=== PATIENT | female | born 2000 | race Caucasian/White ===

== ENCOUNTER 2022-01-09 11:39 | Emergency (ER) | payer BC, SELFPAY ==
[2022-01-09] VITALS (7 sets, daily range): BP systolic 91–116; BP diastolic 49–79; PULSE 66–90; RESP 14–18; TEMP 36.5–37.6; O2SAT 98–100; BMI 24.3
--- NOTE | ~2022-01-09 | US_ITS ---
EXAMINATION: US PELVIS CLINICAL INFORMATION: Pelvic pain COMPARISON: None TECHNIQUE: Ultrasound of the pelvis is performed using both transabdominal and transvaginal transducers along with Doppler. Transvaginal imaging is performed due to inadequate visualization transabdominally. FINDINGS: Uterus: The uterus is anteverted and measures 7.7 x 3.8 x 5.6 cm. The double wall endometrial thickness is 1.2 mm. Although not discretely interrogated, there is suspected endometrial cystic changes which can be seen in the setting of adenomyosis. The uterus is smooth in contour and has normal myometrial echogenicity. No visible fibroid. Adnexa: Both ovaries are visualized. There is normal color flow to the adnexa. There is no ovarian torsion. There is no pelvic ascites or fluid collection. Right ovary measures 3.7 x 2.5 x 2.1 cm. Left ovary measures 2.0 x 2.8 x 1.8 cm. US/US pelvic and transvaginal IMPRESSION: Unremarkable sonographic appearance of the ovaries without evidence of ovarian torsion. Although not discretely interrogated, there is suspected endometrial cystic changes which can be seen in the setting of adenomyosis.
--- NOTE | ~2022-01-09 | US_ITS ---
EXAMINATION: US PELVIS CLINICAL INFORMATION: Pelvic pain COMPARISON: None TECHNIQUE: Ultrasound of the pelvis is performed using both transabdominal and transvaginal transducers along with Doppler. Transvaginal imaging is performed due to inadequate visualization transabdominally. FINDINGS: Uterus: The uterus is anteverted and measures 7.7 x 3.8 x 5.6 cm. The double wall endometrial thickness is 1.2 mm. Although not discretely interrogated, there is suspected endometrial cystic changes which can be seen in the setting of adenomyosis. The uterus is smooth in contour and has normal myometrial echogenicity. No visible fibroid. Adnexa: Both ovaries are visualized. There is normal color flow to the adnexa. There is no ovarian torsion. There is no pelvic ascites or fluid collection. Right ovary measures 3.7 x 2.5 x 2.1 cm. Left ovary measures 2.0 x 2.8 x 1.8 cm. US/US pelvic ovarian doppler IMPRESSION: Unremarkable sonographic appearance of the ovaries without evidence of ovarian torsion. Although not discretely interrogated, there is suspected endometrial cystic changes which can be seen in the setting of adenomyosis.
--- NOTE | ~2022-01-09 | US_ITS ---
EXAMINATION: US VENOUS ULTRASOUND WITH DOPPLER LOWER EXTREMITY, BILATERAL CLINICAL INFORMATION: Elevated d-dimer COMPARISON: None TECHNIQUE: Ultrasound of the deep veins is performed from the hip to the calf with compression sonography and color and pulse Doppler assessment. Spectral analysis with color-flow imaging is performed. FINDINGS: RIGHT: There is normal venous compression and respiratory variation and augmented flow. The visualized common femoral vein, superficial femoral vein, profunda femoral vein, popliteal vein, and the trifurcation region shows no evidence of deep venous thrombosis. There is no significant popliteal fossa cyst. LEFT: There is normal venous compression and respiratory variation and augmented flow. The visualized common femoral vein, superficial femoral vein, profunda femoral vein, popliteal vein, and the trifurcation region shows no evidence of deep venous thrombosis. There is no significant popliteal fossa cyst. If the patient's symptoms persist, followup ultrasound in 5 days 7 days might be of value to exclude proximal propagation from a non-visualized calf vein. US/US venous duplex LE BI IMPRESSION: No DVT demonstrated in the bilateral lower extremity.
--- NOTE | 2022-01-09 12:21 | ECG_ITS ---
Test Reason : LOSS OF CONCIOUSNESS Blood Pressure : / mmHG Vent. Rate : 064 BPM Atrial Rate : 064 BPM P-R Int : 132 ms QRS Dur : 084 ms QT Int : 456 ms P-R-T Axes : 020 077 018 degrees QTc Int : 470 ms Normal sinus rhythm Nonspecific T wave abnormality Prolonged QT Abnormal ECG No previous ECGs available Referred By: Perry Leahy Electronically Signed By:Rishabh Whalen
--- NOTE | 2022-01-09 12:22 | ED_ITS ---
HPI - General Adult General Chief complaint: Syncope Stated complaint: syncope Time Seen by Provider: 01/09/22 12:08 Source: patient Mode of arrival: ambulatory History of Present Illness HPI narrative: 21-year-old female presents to the ED for syncopal episode after a bowel movement. Mother and patient states history syncopal episodes in the past and her primary care provider is aware. Patient states she has had syncopal episode s after bowel movements in the past. Patient states having normal colonoscopy and endoscopy. Patient denies having any headache, chest pain, shortness of breath, or abdominal pain before syncopal episodes. Patient states after bowel movement she felt cold and sweaty so she slid herself off the toilet and onto the floor and then syncopized. Patient states when she woke up she had mild menstrual abdominal cramping. patient is on her menstruation. Patient denies heavy bleeding. Patient is not on any control pills. Patient denies being . Related Data Allergies Allergy/AdvReac Type Severity Reaction Status Date / Time No Known Allergies Allergy Verified 01/09/22 12:19 Review of Systems Review of Systems: Syncopal episodes after bowel movement. Patient presently on menstruation. Yes all other systems are reviewed and are negative Constitutional: Constitutional: Reports as per HPI and Reports no additional constitutional complaints PMFSH Social History Social History Alcohol intake: never Patient Tobacco Use Status: Never used Tobacco Use of substances other than those prescribed or required for medical reasons: No Advance Directives: No Advance Directives Information Provided: No Physical Exam ED Vital Signs: Vital Signs - 24 hr 01/09/22 12:10 01/09/22 13:36 01/09/22 13:37 Temperature 97.7 F Pulse Rate 68 70 79 Respiratory Rate 18 14 Blood Pressure 97/54 L 93/54 L 96/53 L Pulse Oximetry 100 99 01/09/22 13:57 01/09/22 15:44 01/09/22 20:09 Temperature 98 F 99.7 F 98.8 F Pulse Rate 76 73 90 Respiratory Rate 16 16 17 Blood Pressure 101/50 L 91/49 L 116/79 Pulse Oximetry 100 98 BMI result Body Mass Index 24.3 Const General: cooperative, healthy appearing, comfortable, no acute distress, well developed, alert, awake and Physically active Orientation/consciousness: patient oriented x3 HENMT Head: Yes normal to inspection, Yes No palpable skull fracture present, Yes nor mocephalic, Yes atraumatic and No abrasion Eyes General: appearance normal, both eyes and all related structures Neck Neck: Yes normal visual inspection, Yes full ROM, Yes no lymphadenopathy, Yes no meningeal signs, Yes trachea midline, Yes supple, No anterior neck swelling and No tender Chest Chest palpation & inspection: normal inspection of the chest and normal palpation of entire chest wall Resp Effort & Inspection: normal respiratory effort and able to speak in complete sentences Auscultation: clear to auscultation bilaterally Cardio Jugular venous distension: no JVD Heart sounds: S1 normal heart sound present and S2 normal heart sound present GI Inspection: Yes normal to inspection and No abdominal wall ecchymosis Palpation (GI): Soft to palpation, not firm, nontender, no guarding and not rigid General: No CVA tenderness and Yes no CVA tenderness Back/Spine/Pelvis Back: no CVA tenderness, No CVA tenderness and No back tenderness Skin General skin exam: no rashes or lesions noted and elasticity normal Neuro General: patient oriented x3, gait normal, no meningeal signs and CN's II-XI intact bilaterally Cranial nerves: Yes CN's II-XII intact bilaterally Extrem Other: lower extremities negative for swelling, pitting edema, or calf tenderness. Psych Appearance: grossly normal, well kempt and not disheveled Course Course Course Narrative: Fluids ordered. EKG ordered. Labs ordered. Orthostatics ordered. Reevaluation(s) Reevaluation #1: patient has slightly elevated D-dimer ( 237). Upper normal limit is 243. no risk factors for PE. Will send for lower extremity ultrasound to make sure there is no DVT( although leg exam is normal). Patient having menstrual cramps and syncopal episode. Negative . abdomen benign. negative any rebound tenderness, You, McBurney, suicide, or Rovsing sign. Has some suprapubic tenderness will do ultrasound make sure there is no torsion although very unlikely. Dr. Benavides evaluated and spoke with patient. she agrees with plan. No need for chest CTA. Labs are normal. Orthostatics negative. Time: 05:49 Reevaluation #2: transvaginal ultrasound normal. Negative for ovarian cyst/torsion. it does shows adenomyosis. Bilateral lower extremity ultrasound negative for DVT. Patient's blood pressure normally runs low. [facility] which shows that patient usually runs a systolic 90s and diastolic less than 60 which is baseline. patient denies any dizziness. patient states multiple history of syncopal episodes for couple years. patient and mother informed to follow-up with primary care provider. Time: 18:24 Reevaluation #3: Second troponin negative. Patient and mother given copy of labs,ekg, and images told to follow-up with primary care provider and OBGYN. Medical Decision Making MDM Narrative Medical decision making narrative: syncope. Adenomyosis Lab Data Result diagrams: 01/09/22 12:51 01/09/22 12:51 Labs: Lab Results 01/09/22 01/09/22 01/09/22 Range/Units 12:34 12:51 12:51 WBC 12.3 H (4.8-10.8) X10*3/uL RBC 4.06 L (4.20-5.50) X10*6/uL Hgb 13.2 (12.0-16.0) g/dl Hct 40.2 (37.0-47.0) % MCV 99.0 H (80.0-98.0) fL MCH 32.5 (27.0-33.0) pg MCHC 32.8 (31.0-35.0) g/dl RDW 12.0 (11.0-16.0) % Plt Count 209 (160-400) X10*3/uL MPV 9.5 (9.4-12.3) fL Immature Gran % (Auto) 0.4 (0.0-0.4) % Neut % (Auto) 89.7 H (45-73) % Lymph % (Auto) 5.6 L (20-40) % [place] % (Auto) 3.9 (2-11) % Eos % (Auto) 0.2 (0-4) % Baso % (Auto) 0.2 (0-2) % Lymph # (Auto) 0.7 L (1.2-4.9) X10*3/uL [place] # (Auto) 0.5 (0.1-1.2) X10*3/uL Eos # (Auto) 0.0 (0.0-0.4) X10*3/uL Baso # (Auto) 0.0 (0.0-0.2) X10*3/uL Abs Immat Gran (auto) 0.05 H (0.00-0.03) X10*3/uL Absolute Neuts (auto) 11.0 H (2.0-8.3) x10*3/uL Absolute Nucleated RBC 0.000 (0.0-0.012) X10*3/uL Nucleated RBC % (auto) 0.0 (0.0-0.2) /100WBC PT 15.1 H (9.9-13.0) SEC INR 1.3 H (0.9-1.1) APTT 29.7 (24.1-38.0) SEC D-Dimer High Sensitivty 237 NG/ML Sodium (135-145) mmol/L Potassium (3.3-5.1) mmol/L Chloride (96-108) mmol/L Carbon Dioxide (22-29) mmol/L Anion Gap (12-20) BUN (9-16) mg/dL Creatinine (0.5-1.4) mg/dL Estim Creat Clear Calc Estimated GFR Random Glucose (60-115) mg/dL Calcium (8.4-10.2) mg/dL Magnesium (1.6-2.6) mg/dL Total Bilirubin (0.0-1.0) mg/dL AST (5-31) U/L ALT (0-31) U/L Alkaline Phosphatase (39-117) U/L Troponin I High Sens (<3.5-17.0) ng/L Total Protein (6.5-8.0) g/dL Albumin (3.5-5.0) g/dL Beta HCG, Quant mIU/mL Urine Color Urine Appearance Urine pH (5.0-8.0) Ur Specific [place] (1.005-1.025) Urine Protein (NEG-TRACE) MG/DL Urine Glucose (UA) (NEG) MG/DL Urine Ketones (NEG) MG/DL Urine Blood (NEG) Urine Nitrite (NEG) Ur Leukocyte Esterase (NEG) Urine RBC (0) /HPF Urine WBC (0-4) /HPF Ur Squamous Epith Cells /LPF Urine Bacteria /LPF Urine Mucus /LPF Urine Test (NEGATIVE) COVID-19 ([facility]) Negative (Negative) COVID-19 Clin Com See Note 05/01/22 05/01/22 05/01/22 Range/Units 12:51 12:51 14:04 WBC (4.8-10.8) X10*3/uL RBC (4.20-5.50) X10*6/uL Hgb (12.0-16.0) g/dl Hct (37.0-47.0) % MCV (80.0-98.0) fL MCH (27.0-33.0) pg MCHC (31.0-35.0) g/dl RDW (11.0-16.0) % Plt Count (160-400) X10*3/uL MPV (9.4-12.3) fL Immature Gran % (Auto) (0.0-0.4) % Neut % (Auto) (45-73) % Lymph % (Auto) (20-40) % [place] % (Auto) (2-11) % Eos % (Auto) (0-4) % Baso % (Auto) (0-2) % Lymph # (Auto) (1.2-4.9) X10*3/uL [place] # (Auto) (0.1-1.2) X10*3/uL Eos # (Auto) (0.0-0.4) X10*3/uL Baso # (Auto) (0.0-0.2) X10*3/uL Abs Immat Gran (auto) (0.00-0.03) X10*3/uL Absolute Neuts (auto) (2.0-8.3) x10*3/uL Absolute Nucleated RBC (0.0-0.012) X10*3/uL Nucleated RBC % (auto) (0.0-0.2) /100WBC PT (9.9-13.0) SEC INR (0.9-1.1) APTT (24.1-38.0) SEC D-Dimer High Sensitivty NG/ML Sodium 139 (135-145) mmol/L Potassium 4.3 (3.3-5.1) mmol/L Chloride 106 (96-108) mmol/L Carbon Dioxide 25 (22-29) mmol/L Anion Gap 12 (12-20) BUN 10 (9-16) mg/dL Creatinine 0.75 (0.5-1.4) mg/dL Estim Creat Clear Calc 120.7 Estimated GFR > 60 Random Glucose 93 (60-115) mg/dL Calcium 9.1 (8.4-10.2) mg/dL Magnesium 1.9 (1.6-2.6) mg/dL Total Bilirubin 1.0 (0.0-1.0) mg/dL AST 16 (5-31) U/L ALT 13 (0-31) U/L Alkaline Phosphatase 71 (39-117) U/L Troponin I High Sens < 3.5 (<3.5-17.0) ng/L Total Protein 7.4 (6.5-8.0) g/dL Albumin 4.2 (3.5-5.0) g/dL Beta HCG, Quant < 2 mIU/mL Urine Color YELLOW Urine Appearance CLEAR Urine pH 6.0 (5.0-8.0) Ur Specific [place] 1.010 (1.005-1.025) Urine Protein NEG (NEG-TRACE) MG/DL Urine Glucose (UA) NEG (NEG) MG/DL Urine Ketones NEG (NEG) MG/DL Urine Blood 3+ H (NEG) Urine Nitrite NEG (NEG) Ur Leukocyte Esterase NEG (NEG) Urine RBC 50-75 H (0) /HPF Urine WBC 1-4 (0-4) /HPF Ur Squamous Epith Cells TRACE /LPF Urine Bacteria TRACE /LPF Urine Mucus 1+ /LPF Urine Test (NEGATIVE) COVID-19 ([facility]) (Negative) COVID-19 Clin Com 01/09/22 01/09/22 Range/Units 14:04 19:05 WBC (4.8-10.8) X10*3/uL RBC (4.20-5.50) X10*6/uL Hgb (12.0-16.0) g/dl Hct (37.0-47.0) % MCV (80.0-98.0) fL MCH (27.0-33.0) pg MCHC (31.0-35.0) g/dl RDW (11.0-16.0) % Plt Count (160-400) X10*3/uL MPV (9.4-12.3) fL Immature Gran % (Auto) (0.0-0.4) % Neut % (Auto) (45-73) % Lymph % (Auto) (20-40) % [place] % (Auto) (2-11) % Eos % (Auto) (0-4) % Baso % (Auto) (0-2) % Lymph # (Auto) (1.2-4.9) X10*3/uL [place] # (Auto) (0.1-1.2) X10*3/uL Eos # (Auto) (0.0-0.4) X10*3/uL Baso # (Auto) (0.0-0.2) X10*3/uL Abs Immat Gran (auto) (0.00-0.03) X10*3/uL Absolute Neuts (auto) (2.0-8.3) x10*3/uL Absolute Nucleated RBC (0.0-0.012) X10*3/uL Nucleated RBC % (auto) (0.0-0.2) /100WBC PT (9.9-13.0) SEC INR (0.9-1.1) APTT (24.1-38.0) SEC D-Dimer High Sensitivty NG/ML Sodium (135-145) mmol/L Potassium (3.3-5.1) mmol/L Chloride (96-108) mmol/L Carbon Dioxide (22-29) mmol/L Anion Gap (12-20) BUN (9-16) mg/dL Creatinine (0.5-1.4) mg/dL Estim Creat Clear Calc Estimated GFR Random Glucose (60-115) mg/dL Calcium (8.4-10.2) mg/dL Magnesium (1.6-2.6) mg/dL Total Bilirubin (0.0-1.0) mg/dL AST (5-31) U/L ALT (0-31) U/L Alkaline Phosphatase (39-117) U/L Troponin I High Sens < 3.5 (<3.5-17.0) ng/L Total Protein (6.5-8.0) g/dL Albumin (3.5-5.0) g/dL Beta HCG, Quant mIU/mL Urine Color Urine Appearance Urine pH (5.0-8.0) Ur Specific [place] (1.005-1.025) Urine Protein (NEG-TRACE) MG/DL Urine Glucose (UA) (NEG) MG/DL Urine Ketones (NEG) MG/DL Urine Blood (NEG) Urine Nitrite (NEG) Ur Leukocyte Esterase (NEG) Urine RBC (0) /HPF Urine WBC (0-4) /HPF Ur Squamous Epith Cells /LPF Urine Bacteria /LPF Urine Mucus /LPF Urine Test NEGATIVE (NEGATIVE) COVID-19 ([facility]) (Negative) COVID-19 Clin Com ECG Data Interpretation: normal sinus rhythm. Reticular 64. Pr interval 132. QRS 84. pr QTC 470. Negative STEMI Discharge Plan Discharge Clinical Impression: Syncope, Adenomyosis of uterus Patient Disposition: Home, Self-Care Instructions: Syncope (DC), Pelvic Pain (ED) Additional Instructions: your blood work came back normal And EKG came back negative for heart attack. COVID swab came back negative. lower extremity ultrasound came back negative for DVT. Pelvic ultrasound came back negative for ovarian cyst but does shows adenomyosis of the uterus. 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 And inform me you have had multiple syncopal episodes in the past your primary care provider may need to refer to Cardiology. Return to ED for chest pain, shortness of breath, not a syncopal episode, calf pain, coughing up blood, leg swelling, fever, chills, profuse vaginal bleeding, or any other concerning symptoms. Interventions: ED Discharge Assessment Last Done: 01/09/22 20:09 Discharge Date/Time: 01/09/22 20:10 Print Language: Azeri
[2022-01-09 12:55] LABS: MANUAL DIFF FLAG NO
[2022-01-09 12:56] LABS: Basophils Percent Auto 0.2 % (0-2); Eosinophils Percent Auto 0.2 % (0-4); Hematocrit 40.2 % (37.0-47.0); Hemoglobin 13.2 g/dl (12.0-16.0); Imm Gran Abs Auto 0.05 X10*3/uL (0.00-0.03); Imm Gran Pct Auto 0.4 % (0.0-0.4); Lymphocytes Absolute Auto 0.7 X10*3/uL (1.2-4.9); Lymphocytes Percent Auto 5.6 % (20-40); Mean Corpuscular HGB Conc 32.8 g/dl (31.0-35.0); Mean Corpuscular Hemoglobin 32.5 pg (27.0-33.0); Mean Platelet Volume 9.5 fL (9.4-12.3); Monocytes Absolute Auto 0.5 X10*3/uL (0.1-1.2); Monocytes Percent Auto 3.9 % (2-11); Neutrophils Percent Auto 89.7 % (45-73); Platelet Count 209 X10*3/uL (160-400); Red Blood Count 4.06 X10*6/uL (4.20-5.50); White Blood Count 12.3 X10*3/uL (4.8-10.8)
[2022-01-09 13:02] LABS: COVID-19 Test Negative (Negative)
[2022-01-09 13:11] LABS: INTERNATIONAL NORM RATIO 1.3 (0.9-1.1); Prothrombin Time 15.1 SEC (9.9-13.0)
[2022-01-09 13:14] LABS: Partial Thromboplastin Time 29.7 SEC (24.1-38.0)
[2022-01-09 13:18] LABS: Alanine Aminotransferase 13 U/L (0-31); Albumin Level 4.2 g/dL (3.5-5.0); Alkaline Phosphatase 71 U/L (39-117); Anion Gap 12 (12-20); Aspartate Amino Transferase 16 U/L (5-31); Blood Urea Nitrogen 10 mg/dL (9-16); Calcium 9.1 mg/dL (8.4-10.2); Carbon Dioxide 25 mmol/L (22-29); Chloride 106 mmol/L (96-108); Creatinine Clr Calc Pharmacy 120.7; Estimated Glomerular Filt Rate > 60; Glucose Random 93 mg/dL (60-115); Potassium 4.3 mmol/L (3.3-5.1); Sodium 139 mmol/L (135-145); Total Protein 7.4 g/dL (6.5-8.0)
[2022-01-09 13:23] LABS: Troponin-I High Sensitivity < 3.5 ng/L (<3.5-17.0)
[2022-01-09 13:24] LABS: HCG Quantitative < 2 mIU/mL
[2022-01-09 13:25] LABS: D Dimer High Sensitivity 237 NG/ML
[2022-01-09] MEDS: 0.9 % Sodium Chloride 1,000 ML 999 ML IV ×2 (13:27→14:16)
[2022-01-09 13:32] LABS: Magnesium 1.9 mg/dL (1.6-2.6)
[2022-01-09 14:15] LABS: Appearance Urine CLEAR; Color Urine YELLOW; Glucose Urine UA NEG (NEG); Leukocyte Esterase Urine NEG (NEG); Nitrite Urine NEG (NEG); UACC Culture Trigger NO; Urine Blood 3+ (NEG); Urine Ketones NEG (NEG); Urine Protein NEG (NEG-TRACE)
[2022-01-09 14:17] LABS: UPreg QC Valid YES; Urine Pregnancy NEGATIVE (NEGATIVE)
[2022-01-09 14:24] LABS: Bacteria Urine TRACE /LPF; Mucus Urine 1+ /LPF; RBC Urine 50-75 /HPF (0); Squamous Epithelial Cell Urine TRACE /LPF
[2022-01-09 19:38] LABS: Troponin-I High Sensitivity < 3.5 ng/L (<3.5-17.0)
== END 2022-01-09 20:10 | disposition home or self-care (01) ==
PROVIDERS: Physician Assistant; Emergency Provider Emergency Medicine; PCP Pediatrics
DX: R55 Syncope and collapse (principal); N80.0 Endometriosis of uterus; R10.2 Pelvic and perineal pain; R79.1 Abnormal coagulation profile; Z20.822 Contact with and (suspected) exposure to COVID-19; R68.83 Chills (without fever); N94.6 Dysmenorrhea, unspecified
CPT/HCPCS: 36415; 76830; 76856; 80053; 81001; 81025; 83735; 84484; 84702; 85025; 85379; 85610; 85730; 87635; 93005; 93970; 93975; 99284

== ENCOUNTER 2023-05-26 11:02 | Emergency (ER) | payer BC, SELFPAY ==
--- NOTE | ~2023-05-26 | CT_ITS ---
EXAMINATION: CT ABDOMEN AND PELVIS WITH CONTRAST CLINICAL INFORMATION: Abdominal cramping, nausea, vomiting and diarrhea. COMPARISON: Pelvic ultrasound dated 01/09/2022. TECHNIQUE: Multidetector volumetric images were obtained from the superior aspect of the liver through the pubic symphysis following administration 80 mL of Omnipaque 350 intravenous contrast. Sagittal and coronal reformatted images were obtained on the technologist's workstation. Oral contrast: No This CT examination was performed using dose optimization techniques as appropriate, variously including the following: *Automated exposure control *Adjustment of mA and/or kV according to patient size (this includes techniques or standardized protocols for targeted exams where dose is matched to indication/reason for exam; i.e. extremities or head) *Use of iterative reconstruction technique DLP: 519 mGy-cm FINDINGS: LUNG BASES: The visualized lung bases are unremarkable. LIVER, GALLBLADDER, AND BILIARY TREE: The liver is normal in size, shape, and attenuation. No focal hepatic lesion or biliary ductal dilatation is present. The gallbladder is unremarkable with no evidence of radiopaque gallstones, gallbladder wall thickening, or obvious pericholecystic inflammatory changes. PANCREAS: Unremarkable. SPLEEN: Unremarkable. ADRENAL GLANDS: Unremarkable. KIDNEYS AND URETERS: The kidneys are normal in size, shape, and attenuation. No hydronephrosis, hydroureter, or calculi seen. No perinephric stranding. BLADDER: Unremarkable. GASTROINTESTINAL TRACT: The small and large bowel are unremarkable. There is no obstruction, free intraperitoneal air or abscess. No focal bowel wall thickening is seen. There is no diverticulosis or diverticulitis The appendix is unremarkable. ABDOMINAL WALL: There is a small fat-containing umbilical hernia. LYMPH NODES: Normal. VASCULAR: Unremarkable. PELVIC VISCERA: The right ovary contains a 3.5 x 3.1 cm simple cyst, with postcontrast Hounsfield value of 0.3 units (2:64). This requires no imaging follow-up. There is a small amount of free fluid adjacent to the left ovary. The left ovary and uterus are unremarkable. OSSEOUS STRUCTURES: Unremarkable. CT/CT abdomen pelvis w IV con IMPRESSION: 1. A 3.5 cm simple right ovarian cyst is incidentally noted, requiring no imaging follow-up. There is a small amount of free fluid adjacent to the right ovary. 2. No bowel obstruction, free intraperitoneal air or abscess is seen. There is no appendicitis or diverticulitis. 3. There is no urinary calculus, mass or obstruction. 4. There is no abdominopelvic mass or lymphadenopathy. 5. Osseous structures are unremarkable. Fleischner guidelines were followed.
[2023-05-26 11:15] VITALS: BP 107/72; PULSE 77; RESP 17; TEMP 36.8; O2SAT 97; BMI 26.2
--- NOTE | 2023-05-26 11:32 | ED_ITS ---
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 Patient states she 1st began to have lower abdominal, cramping abdominal pain that has been waxing waning intensity. She reports a history of similar symptoms in the past and states that she ?has stomach problems?. Patient states she has had similar symptoms which typically resolve after a day or 2. She has been seen by her primary care provider as well as GI in the past without any known etiology. Patient states that this is much different as her symptoms have progressed in frequency and intensity and she does not feel she is getting better. She has had associated nausea but no vomiting. She reports her frequent episodes of diarrhea that are yellow in color. She denies any hematochezia or melena. There is no nocturnal symptoms. She reports having a bland diet and tolerating liquids. She denies any urinary symptoms. No vaginal discharge bleeding or spotting. She does report having normal menses which ended her this week. Due to the persistent symptoms, the patient presents to the emergency department for further evaluation. She denies any recent travel. No new foods. Related Data Previous Rx's Medication Instructions Recorded loperamide 2 mg capsule 2 mg PO Q6H PRN loose stool #20 05/26/23 caps ondansetron 4 mg oral soluble film 4 mg PO Q8H PRN nausea and 05/26/23 vomiting #12 ea Allergies Allergy/AdvReac Type Severity Reaction Status Date / Time No Known Allergies Allergy Verified 01/09/22 12:19 Review of Systems 2 Review of Systems: Constitutional: No Weight loss, No Fever, No Chills, No Night Sweats, No Fatigue, No Malaise Cardiovascular: No Chest Pain, No SOB, No Edema, No Palpitations Respiratory: No Cough, No Sputum, No Dyspnea Gastrointestinal: + Nausea, No Vomiting, No Diarrhea, No Constipation, + Abdominal pain Genitourinary: No irregular bleeding, No Dysuria, No Hematuria, No Flank Pain Musculoskeletal: No joint pain, No Myalgias, No Joint Swelling Skin: No Skin Lesions, No rash Neuro: No Weakness, No Numbness, No Paresthesias, No Loss of Consciousness, No Dizziness, No Headache [facility] Past Medical History Attestation statement: The following information was validated with the patient. [facility] Narrative: Mast cell reactivation syndrome Social History Social History Alcohol intake: never Patient Tobacco Use Status: Never used Tobacco Smoked in Last 30 Days: No Use of substances other than those prescribed or required for medical reasons: No Advance Directives: No Advance Directives Information Provided: No Physical Exam ED Vital Signs: Vital Signs - 24 hr 05/26/23 11:15 05/26/23 17:42 05/26/23 20:00 Temperature 98.3 F 98 F Pulse Rate 77 79 68 Respiratory Rate 17 14 16 Blood Pressure 107/72 119/70 106/69 Pulse Oximetry 97 99 98 Oxygen Delivery Method Room Air Room Air Room Air BMI result Body Mass Index 26.2 Const General: cooperative and no acute distress HENMT Mouth: Normal oral and palatal mucosa present Eyes Pupils: Equal, round and reactive pupils present Resp Effort & Inspection: normal respiratory effort, no audible wheezes and no cough Cardio Rate: regular rate Rhythm: regular rhythm GI Other: Abdomen is soft with mild diffuse lower abdominal tenderness. No guarding or rebound. No CVAT. No Rovsing's, no You sign. OB/external & speculum: Deferred OB/external & speculum exam Neuro Cranial nerves: Yes Equal, round and reactive pupils present Psych Appearance: grossly normal Course Course Course Narrative: This is a rapid medical exam: Additional HPI, ROS, PE not included below will be deferred to primary provider. Patient is a 22-year-old female with history of mast cell activation syndrome presenting to the ED with complaint of RUQ abdominal pain and lower abdominal cramping since Monday. States episodes are intermittent, pain increases sharply with episodes and she feels near syncopal with episodes. Also reports yellow diarrhea. Denies recent antibiotic use. Reports nausea, denies vomiting, denies fevers. Reports chills after episodes. Denies urinary symptoms. Plan: UA, labs Reevaluation(s) Reevaluation #1: At this time, patient's CT returned without any acute process. Incidental finding of ovarian cyst noted. This was reviewed with the patient. Currently the patient is receiving the IV fluids and Zofran. She is feeling well at this time is not had any episodes of diarrhea while in the emergency department. Once IV fluids are complete, patient feels comfortable with discharge plan home. She is comfortable with Zofran and loperamide. Time: 20:42 Medications Administered Discontinued Medications Generic Name Dose Route Start Last Admin Trade Name Bernice PRN Reason Stop Dose Admin Acetaminophen 975 mg 05/26/23 20:40 05/26/23 20:49 Acetaminophen 325 Mg Tablet PO 05/26/23 20:41 975 mg ONCE ONE Administration Sodium Chloride 1,000 mls @ 999 mls/hr 05/26/23 19:15 05/26/23 21:31 Ns IV 05/26/23 20:15 Infused .Q1H1M ROMIE Infusion Iohexol 100 ml 05/26/23 19:51 05/26/23 19:51 Iohexol 350 Mg/Ml 100 Ml Infus..Btl IV 05/26/23 19:52 80 ml ONCE ONE Administration Ondansetron HCl 4 mg 05/26/23 19:07 05/26/23 20:26 Ondansetron Hcl 4 Mg/2 Ml Vial IVPUSH 05/26/23 19:08 4 mg ONCE ONE Administration Medical Decision Making Medical Decision Making MDM Narrative: 7:15 p.m., May 26, 2023 22-year-old female with a 5 day history of abdominal pain, cramping, intermittent nausea and diarrhea. History of similar symptoms in the past however progressively worsening in nature. Check labs, resulted at this time, do not review any acute process. UA and quant are negative. Vitals are stable, no evidence of SIRS, sepsis. Given that the patient has had similar symptoms in the past and that she is hemodynamically stable, with normal labs, I have had extensive discussion with the patient regarding additional workup and symptom treatment. Patient is agreeable to IV fluids and antiemetics. I have also discussed with him benefits of additional imaging studies with CT. The patient is requesting that I proceed with this testing. I feel that this is reasonable at this time given that her symptoms are not improving and she has not had any recent imaging. Differential Diagnosis Differential Diagnoses: The differential diagnosis associated with the presentation includes Colitis Diverticulitis Bowel obstruction Enteritis Lab Data [facility] Lab Attestation statement: I reviewed the patient's lab results. 05/26/23 13:30 05/26/23 13:30 Labs: Lab Results 05/26/23 05/26/23 Range/Units 13:27 13:30 WBC 8.1 (4.8-10.8) X10*3/uL RBC 4.31 (4.20-5.50) X10*6/uL Hgb 14.2 (12.0-16.0) g/dl Hct 42.0 (37.0-47.0) % MCV 97.4 (80.0-98.0) fL MCH 32.9 (27.0-33.0) pg MCHC 33.8 (31.0-35.0) g/dl RDW 11.9 (11.0-16.0) % Plt Count 280 D (160-400) X10*3/uL MPV 9.2 L (9.4-12.3) fL Immature Gran % (Auto) 0.2 (0.0-0.4) % Neut % (Auto) 66.9 (45-73) % Lymph % (Auto) 24.4 (20-40) % [place] % (Auto) 7.4 (2-11) % Eos % (Auto) 0.5 (0-4) % Baso % (Auto) 0.6 (0-2) % Lymph # (Auto) 2.0 (1.2-4.9) X10*3/uL [place] # (Auto) 0.6 (0.1-1.2) X10*3/uL Eos # (Auto) 0.0 (0.0-0.4) X10*3/uL Baso # (Auto) 0.1 (0.0-0.2) X10*3/uL Abs Immat Gran (auto) 0.02 (0.00-0.03) X10*3/uL Absolute Neuts (auto) 5.4 (2.0-8.3) x10*3/uL Absolute Nucleated RBC 0.000 (0.0-0.012) X10*3/uL Nucleated RBC % (auto) 0.0 (0.0-0.2) /100WBC Sodium 139 (135-145) mmol/L Potassium 4.1 (3.3-5.1) mmol/L Chloride 105 (96-108) mmol/L Carbon Dioxide 28 (22-29) mmol/L Anion Gap 10 L (12-20) BUN 12 (9-16) mg/dL Creatinine 0.78 (0.5-1.4) mg/dL Estim Creat Clear Calc 125.5 Estimated GFR > 60 Random Glucose 82 (60-115) mg/dL Calcium 9.8 D (8.4-10.2) mg/dL Magnesium 2.2 (1.6-2.6) mg/dL Total Bilirubin 0.6 (0.0-1.0) mg/dL AST 18 (5-31) U/L ALT 14 (0-31) U/L Alkaline Phosphatase 70 (39-117) U/L Total Protein 8.0 (6.5-8.0) g/dL Albumin 4.7 (3.5-5.0) g/dL Lipase 17 (8-78) U/L Beta HCG, Quant < 2 mIU/mL Urine Color Yellow Urine Appearance Clear Urine pH 6.0 (5.0-9.0) Ur Specific [place] 1.015 (1.005-1.025) Urine Protein Negative (Neg-Trace) mg/dL Urine Glucose (UA) Negative (Negative) mg/dL Urine Ketones Negative (Negative) mg/dL Urine Blood Negative (Negative) Urine Nitrite Negative (Negative) Ur Leukocyte Esterase Trace H (Negative) Urine RBC 0-2 (0-2) /HPF Urine WBC 0-5 (0-5) /HPF Ur Squamous Epith Cells 3-5 (0-2) /HPF Urine Bacteria Trace (None Seen) Hyaline Casts 0-2 (0-2) /LPF Radiology Impression Discussion of test interpretation with radiology: I have reviewed the radiologist's reading. Radiologist Impression: [place] [id number] CT Scan Report Signed Patient: Lisha Sanchez MR#: [id number] : 2000 Acct:[id number] Age/Sex: 22 / F ADM Date: 05/26/23 Loc: HO.ED Attending Dr: Ordering Physician: Ayaz Tripathi Date of Service: 05/26/23 Procedure(s): CT abdomen pelvis w IV con Accession Number(s): [id number] cc: Scliopou,Ayaz PA~ EXAMINATION: CT ABDOMEN AND PELVIS WITH CONTRAST CLINICAL INFORMATION: Abdominal cramping, nausea, vomiting and diarrhea. COMPARISON: Pelvic ultrasound dated 01/09/2022. TECHNIQUE: Multidetector volumetric images were obtained from the superior aspect of the liver through the pubic symphysis following administration 80 mL of Omnipaque 350 intravenous contrast. Sagittal and coronal reformatted images were obtained on the technologist's workstation. Oral contrast: No This CT examination was performed using dose optimization techniques as appropriate, variously including the following: *Automated exposure control *Adjustment of mA and/or kV according to patient size (this includes techniques or standardized protocols for targeted exams where dose is matched to indication/reason for exam; i.e. extremities or head) *Use of iterative reconstruction technique DLP: 519 mGy-cm FINDINGS: LUNG BASES: The visualized lung bases are unremarkable. LIVER, GALLBLADDER, AND BILIARY TREE: The liver is normal in size, shape, and attenuation. No focal hepatic lesion or biliary ductal dilatation is present. The gallbladder is unremarkable with no evidence of radiopaque gallstones, gallbladder wall thickening, or obvious pericholecystic inflammatory changes. PANCREAS: Unremarkable. SPLEEN: Unremarkable. ADRENAL GLANDS: Unremarkable. KIDNEYS AND URETERS: The kidneys are normal in size, shape, and attenuation. No hydronephrosis, hydroureter, or calculi seen. No perinephric stranding. BLADDER: Unremarkable. GASTROINTESTINAL TRACT: The small and large bowel are unremarkable. There is no obstruction, free intraperitoneal air or abscess. No focal bowel wall thickening is seen. There is no diverticulosis or diverticulitis The appendix is unremarkable. ABDOMINAL WALL: There is a small fat-containing umbilical hernia. LYMPH NODES: Normal. VASCULAR: Unremarkable. PELVIC VISCERA: The right ovary contains a 3.5 x 3.1 cm simple cyst, with postcontrast Hounsfield value of 0.3 units (2:64). This requires no imaging follow-up. There is a small amount of free fluid adjacent to the left ovary. The left ovary and uterus are unremarkable. OSSEOUS STRUCTURES: Unremarkable. CT/CT abdomen pelvis w IV con IMPRESSION: 1. A 3.5 cm simple right ovarian cyst is incidentally noted, requiring no imaging follow-up. There is a small amount of free fluid adjacent to the right ovary. 2. No bowel obstruction, free intraperitoneal air or abscess is seen. There is no appendicitis or diverticulitis. 3. There is no urinary calculus, mass or obstruction. 4. There is no abdominopelvic mass or lymphadenopathy. 5. Osseous structures are unremarkable. Fleischner guidelines were followed. Dictated By: David Sexton MD Signed By: <Electronically signed by David Sexton MD in OV> 05/26/232020 DD/ 50 TD/TT: Tax Preparer: MICHELLE Discharge Plan Discharge Clinical Impression: Abdominal pain, Diarrhea, Nausea Patient Disposition: Home, Self-Care Instructions: Acute Diarrhea (ED), Abdominal Pain (ED) Additional Instructions: And rest. Avoid strenuous activity. Drink plenty of fluids. Brat diet: Bananas, white rice, applesauce, plain toast. Follow-up with your primary care provider. Follow-up with GI referral. Watch for any worsening of symptoms. Return immediately to the emergency department for further evaluation. Prescriptions: New loperamide 2 mg capsule 2 mg PO Q6H PRN (Reason: loose stool) Qty: 20 0RF ondansetron 4 mg film 4 mg PO Q8H PRN (Reason: nausea and vomiting) Qty: 12 0RF Referrals: Ludy Arreguin MD [Physician] - (F/u for recurrent abdominal pain, diarrhea.) Stand Alone Forms: Work/School Release Interventions: ED Discharge Assessment Last Done: 05/26/23 21:53 Discharge Date/Time: 05/26/23 21:53
[2023-05-26 13:37] LABS: MANUAL DIFF FLAG NO
[2023-05-26 13:40] LABS: Appearance Urine Clear; Color Urine Yellow; Glucose Urine UA Negative (Negative); Leukocyte Esterase Urine Trace (Negative); Nitrite Urine Negative (Negative); Specific Gravity - Urine 1.015 (1.005-1.025); UMIC TRIGGER UACC YES; Urine Blood Negative (Negative); Urine Ketones Negative (Negative); Urine Protein Negative (Neg-Trace)
[2023-05-26 13:44] LABS: Basophils Absolute Auto 0.1 X10*3/uL (0.0-0.2); Basophils Percent Auto 0.6 % (0-2); Eosinophils Percent Auto 0.5 % (0-4); Hemoglobin 14.2 g/dl (12.0-16.0); Imm Gran Abs Auto 0.02 X10*3/uL (0.00-0.03); Imm Gran Pct Auto 0.2 % (0.0-0.4); Lymphocytes Percent Auto 24.4 % (20-40); Mean Corpuscular HGB Conc 33.8 g/dl (31.0-35.0); Mean Corpuscular Hemoglobin 32.9 pg (27.0-33.0); Mean Corpuscular Volume 97.4 fL (80.0-98.0); Mean Platelet Volume 9.2 fL (9.4-12.3); Monocytes Absolute Auto 0.6 X10*3/uL (0.1-1.2); Monocytes Percent Auto 7.4 % (2-11); Neutrophils Absolute Auto 5.4 x10*3/uL (2.0-8.3); Neutrophils Percent Auto 66.9 % (45-73); Platelet Count 280 X10*3/uL (160-400); Red Blood Count 4.31 X10*6/uL (4.20-5.50); Red Cell Distribution Width 11.9 % (11.0-16.0); White Blood Count 8.1 X10*3/uL (4.8-10.8)
[2023-05-26 13:51] LABS: Bacteria Urine Trace (None Seen); Hyaline Casts Urine 0-2 /LPF (0-2); RBC Urine 0-2 /HPF (0-2); WBC Urine 0-5 /HPF (0-5)
[2023-05-26 14:09] LABS: Alanine Aminotransferase 14 U/L (0-31); Albumin Level 4.7 g/dL (3.5-5.0); Alkaline Phosphatase 70 U/L (39-117); Anion Gap 10 (12-20); Aspartate Amino Transferase 18 U/L (5-31); Bilirubin Total 0.6 mg/dL (0.0-1.0); Blood Urea Nitrogen 12 mg/dL (9-16); Calcium 9.8 mg/dL (8.4-10.2); Carbon Dioxide 28 mmol/L (22-29); Chloride 105 mmol/L (96-108); Creatinine Clr Calc Pharmacy 125.5; Estimated Glomerular Filt Rate > 60; Glucose Random 82 mg/dL (60-115); HCG Quantitative < 2 mIU/mL; Lipase 17 U/L (8-78); Magnesium 2.2 mg/dL (1.6-2.6); Potassium 4.1 mmol/L (3.3-5.1); Sodium 139 mmol/L (135-145)
[2023-05-26 17:42] VITALS: BP 119/70; PULSE 79; RESP 14; O2SAT 99
--- NOTE | 2023-05-26 18:29 | PC.NURSE ---
pt resting quietly in bed, friend at bedside - brought pt food, pt advised not to eat anything prior to seeing provider.
[2023-05-26] MEDS: iohexoL 350 MG/ML 100 ML INFUS..BTL IV (19:51)
[2023-05-26 20:00] VITALS: BP 106/69; PULSE 68; RESP 16; TEMP 36.6; O2SAT 98
[2023-05-26] MEDS: ondansetron HCL 4 MG/2 ML VIAL IVPUSH (20:26)
[2023-05-26] MEDS: 0.9 % Sodium Chloride 1,000 ML 999 ML IV (20:26)
[2023-05-26] MEDS: Acetaminophen 325 MG TABLET 975 MG PO (20:49)
== END 2023-05-26 21:53 | disposition home or self-care (01) ==
PROVIDERS: Registered Nurse Emergency; Emergency Provider Emergency Medicine Emergency Medical Services
DX: R10.9 Unspecified abdominal pain (principal); R19.7 Diarrhea, unspecified; R11.0 Nausea; Z79.899 Other long term (current) drug therapy
CPT/HCPCS: 36415; 74177; 80053; 81001; 83690; 83735; 84702; 85025; 96361; 96374; 99284; J2405; Q9967

== ENCOUNTER → 2023-08-17 09:57 | Outpatient (BNVA) | payer BC, SELFPAY | PROVIDERS: PCP Nurse Practitioner Family; Visit Provider Internal Medicine Gastroenterology ==

== ENCOUNTER 2023-08-31 12:59 | Outpatient (REF) | payer BC, SELFPAY ==
[2023-08-31 13:48] LABS: Estimated Average Glucose 97 mg/dL
[2023-08-31 14:13] LABS: Glucose Fasting 76 mg/dL (60-99)
[2023-09-07 12:48] LABS: Gastrin <15 pg/mL (<=100)
== END 2023-08-31 13:00 | disposition home or self-care (01) ==
LOC: HO.LAB 12:59
PROVIDERS: Visit Provider Internal Medicine Gastroenterology
DX: R10.84 Generalized abdominal pain (principal); K52.9 Noninfective gastroenteritis and colitis, unspecified
CPT/HCPCS: 36415; 82941; 82947; 83036

== ENCOUNTER 2023-09-02 13:37 | Outpatient (REF) | payer BC, SELFPAY ==
[2023-09-08 18:38] LABS: Pancreatic Elastase-1 >500 mcg/g
== END 2023-09-02 13:38 | disposition home or self-care (01) ==
LOC: HO.LNP 13:37
PROVIDERS: Visit Provider Internal Medicine Gastroenterology
DX: R10.84 Generalized abdominal pain (principal); K52.9 Noninfective gastroenteritis and colitis, unspecified
CPT/HCPCS: 82656

== ENCOUNTER → 2023-09-20 08:03 | Outpatient (REF) | payer BC, SELFPAY ==
--- NOTE | ~2023-09-20 | NM_ITS ---
EXAMINATION: RADIONUCLIDE SOLID FOOD GASTRIC EMPTYING 4-HOUR STUDY CLINICAL INFORMATION: Generalized abdominal pain. Rule out rapid gastric emptying. COMPARISON: No previous gastric emptying study is available for comparison. TECHNIQUE: A standard meal consisting of 4 oz of Egg Beaters brand equivalent tagged with 1 mCi Tc-99m Sulfur Colloid, 8 oz water and 2 slices of toast with jelly was administered orally to the patient. Images were obtained using a dual head gamma camera in the anterior and posterior projections over of the stomach immediately post ingestion and at hourly intervals up to 4 hours post ingestion. The anterior and posterior counts at each time interval were averaged using the geometric mean and expressed as percentage of the immediate post ingestion counts. FINDINGS: There is good visualization of activity in the stomach immediately post ingestion. As the study progresses, there is good clearance of activity from the stomach and visualization of progressively increasing small bowel activity. By the end of the study, there is almost no retention noted in the stomach. Retention in the stomach at each time interval was: 1 hour 85% (normal 37%-90%) 2 hours 60% (normal 30%-60%) 3 hours 12% 4 hours 4% (normal 0%-10%) WV/WV gastric emptying study IMPRESSION: Normal 4-hour solid food gastric emptying study. Gastric emptying study grading per JNMT Consensus Recommendations in 2008: https://tech.snmjournals.org/content/36/1/44 Grade 1 (mild retention): 11-20% at 4 hours Grade 2 (moderate retention): 21-35% at 4 hours Grade 3 (severe retention): 36-50% at 4 hours Grade 4 (very severe retention): >50% retention at 4 hours For solid meal, rapid gastric emptying is less than 30% at 60 minutes. Delayed gastric emptying criteria is more than 60% remaining at 120 minutes or more than 10% at 240 minutes. The 4-hour value is the best discriminator of a normal or abnormal result).
== END ==
LOC: HO.NUCMED 08:03
PROVIDERS: Visit Provider Internal Medicine Gastroenterology
DX: R10.84 Generalized abdominal pain (principal)
CPT/HCPCS: 78264; A9541

== ENCOUNTER → 2023-09-21 12:54 | Outpatient (BNVA) | payer BC, SELFPAY | PROVIDERS: PCP Nurse Practitioner Family; Visit Provider Internal Medicine Gastroenterology ==

== ENCOUNTER → 2024-01-11 11:58 | Outpatient (BNVA) | payer BC, SELFPAY | PROVIDERS: PCP Nurse Practitioner Family; Visit Provider Internal Medicine Gastroenterology ==

== ENCOUNTER → 2024-06-17 11:34 | Outpatient (BNVA) | payer BC, SELFPAY | PROVIDERS: PCP Nurse Practitioner Family; Visit Provider Internal Medicine Gastroenterology ==